=== PATIENT | male | born 1980 | race Caucasian/White ===

== ENCOUNTER 2018-02-11 12:47 | Inpatient (IN) ==
[2018-02-11] MEDS ORDERED: Naloxone 0.4 MG/ML INJ IVP PRN (14:41)
--- NOTE | 2018-02-11 14:44 | Internal Med History&Physical ---
Date of Encounter: 02/11/18 Time of Encounter: 14:44 Internal Medicine - H&P: HPI Chief complaint: My skin turned yellow Admitted From: Home Plans for Post Hospital Care: Home History of present illness: Mr. Cervantes is a 37 year old male with polysubstance abuse: IV drug use of heroine and meth presented to outside facility with complaints of generalized and skin. The patient reports he has been shooting heroin and meth via his upper extremity veins, last use said to be 2 weeks ago. 6 days ago, he noticed increased loose stools described as diarrhea, said to be floating and 2 days ago he noticed yellowness of his eyes associated with darkening of his urine. He denies abdominal pain, he denies fever or chills. Reports abdominal fullness and tightness. He denies any recent sick contacts, he has had no recent travels, he denies chest pain cough or difficulty breathing. He denies nausea or vomiting. He denies an neurologic deficits, he had no trauma preceding his symptoms. he denies LE edema, easy bruising or bleeding from any orifices He reports being to penitentiary recently, but denies been in contact with anyone with similar illness. Work up at [facility] showed mild transaminitis with AST of 836, ALT > 500, ALP 188, total bilirubin 9.7, direct bilirubin 7.2. Lipase and amylase are within normal limit, coagulation panel is 15.5, INR is 1.4, urine analysis shows bilirubinuria abdomen and pelvis CAT scan done showed reactive lymphadenopathy, acute hepatitis and suspected acute cholecystitis Hepatitis viral panel shows reactivity to hepatitis A IgM antibody, hepatitis B surface antigen and hepatitis C antibody. 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 IV drugs: alcohol, marajuana, meth Psychiatric history: anxiety - Social History Smoking Status: Current every day smoker Packs per day: 1/2 Smokeless Tobacco Status: No Alcohol use: occasionally Drug use: methamphetamine - Family History Mother Hx Family Cardiac Disorders: Yes (HTN) Hx Family Respiratory Disorders: No Hx Family Cancer: No Hx Family GI Disorders: Yes (ulcerations NSAIDS) Hx Family Genitourinary Disorders: No Hx Family Endocrine Disorder: No Hx Family Musculoskeletal Disorders: No Hx Family Neuromuscular Disorders: No Hx Family Neurologic Disorders: No Hx Family HEENT Disorders: No Hx Family Autoimmune Disorders: No Hx Family Reproductive Disorders: No Hx Family Psychosocial Disorders: Yes (A/D) Hx Family Medical Disorders: No Father Hx Family Cardiac Disorders: Yes Hx Family Respiratory Disorders: Yes Hx Family Cancer: No Hx Family GI Disorders: No Hx Family Genitourinary Disorders: No Hx Family Endocrine Disorder: Yes (DM) Hx Family Musculoskeletal Disorders: No Hx Family Neuromuscular Disorders: No Hx Family Neurologic Disorders: No Hx Family HEENT Disorders: No Hx Family Autoimmune Disorders: No Hx Family Reproductive Disorders: No Hx Family Psychosocial Disorders: Yes (A/D, Alcoholism) Hx Family Medical Disorders: No Internal Medicine - H&P: Meds No Known Home Drugs 02/11/18 [History] Allergy/AdvReac Type Severity Reaction Status Date / Time Penicillins [PCN] Allergy Rash Verified 02/11/18 10:12 All Systems PM: A 10-system review of systems was performed and is negative for pertinent findings except as documented above in the HPI. - Constitutional Constitutional: as per HPI - EENT Eyes: as per HPI Ears: as per HPI Nose, mouth and throat: as per HPI - Cardiovascular Cardiovascular ROS IM: as per HPI - Respiratory Respiratory: as per HPI - Gastrointestinal Gastrointestinal: as per HPI - Genitourinary Genitourinary ROS male: as per HPI - Musculoskeletal Musculoskeletal ROS IM: as per HPI - Integumentary Integumentary IM: as per HPI - Neurological Neurological ROS: as per HPI - Hematologic/Lymphatic Hematologic/Lymphatic: as per HPI - Constitutional Vitals: Temp Pulse Resp BP Pulse Ox 98.4 F 100 18 132/86 98 02/11/18 14:24 02/11/18 14:24 02/11/18 14:24 02/11/18 14:24 02/11/18 14:24 General appearance: Present: A&O X 3, pleasant, no acute distress Exam: Diffuse skin jaundice - Head Head exam: Present: atraumatic, normocephalic - Eye Eye exam: Present: scleral icterus, conjuntiva pink - ENT ENT exam: Present: mucous membranes moist - Neck Neck exam general surgery: Present: normal inspection - Respiratory Respiratory exam: Present: CTAB - Cardiovascular Cardiovascular exam: Present: RRR, +S1, +S2. Absent: systolic murmur - GI/Abdominal GI/Abdominal exam: Present: soft, tenderness (Mild tenderness in the right upper quadrant, mostly sign negative, no rebound and no guarding. No peritoneal signs) - Extremities Exam Extremities exam: Present: warm, radial pulses palpable and symmetrical. Absent: calf tenderness, cyanotic, pedal edema Additional comments: Tract shin worse on the lower extremity - Neurological Exam Neurological exam: Present: alert, CN II-XII intact, oriented X3, no focal deficits. Absent: pronater drift, facial droop, speech deficit - Skin Additional comments: Jaundice - Assessment and plan (1) Acute hepatitis Current Visit: Yes Status: Acute Assessment and plan: Patient with IV drug abuse reactive hepatitis A IgM, hepatitis B surface antigen, hepatitis C antibody. Hepatitis B core IgM is pending CAT scan noted for likely cholecystitis, however this is unlikely as patient has no abdominal pain, and Vaughn sign is negative. We will obtain gallbladder ultrasound Supportive care with IV fluid hydration and NSAIDs for pain control Monitor LFTs No current indication for gastro-hepatology evaluation. Consider GI evaluation if LFTs continues to worsen. Follow final result of hepatitis panel. (2) Polysubstance abuse Current Visit: Yes Status: Acute Assessment and plan: Encourage cessation Patient last used 2 weeks ago Monitor for withdrawal - Time Spent With Patient Total time spent is greater than 50% in coordination of care (as documented) at patient's floor/unit and/or counseling patient:
[2018-02-11] MEDS: 0.9 % Sodium Chloride 1,000 ML IVC SCH ×2 (15:34→22:37)
[2018-02-11] MEDS ORDERED: Ibuprofen 200 MG TABLET PO PRN (15:40)
[2018-02-11] MEDS: Nicotine 7 MG PATCH.TD24 TD SCH (19:49)
[2018-02-12 06:36] LABS: Basophils % 0.5 %; Eosinophils # 0.1 K/mcL (0.0-0.6); Eosinophils % 2.9 %; Hematocrit 32.9 % (37.5-50.1); Hemoglobin 11.6 g/dL (12.9-16.9); Immature Granulocytes % 0.2 % (0-4); Mean Corpuscular HGB Conc 35.3 g/dL (31.6-35.5); Mean Corpuscular Hemoglobin 33.5 pg (28.0-33.3); Mean Corpuscular Volume 95.1 fL (83.0-100.0); Mean Platelet Volume 9.7 fL (9.4-12.4); Monocytes # 0.7 K/mcL (0.0-1.3); Monocytes % 15.9 %; Neutrophils # 1.3 K/mcL (1.6-8.9); Platelet Count 201 K/mcL (140-400); Red Blood Count 3.46 M/mcL (4.19-5.50); Segmented Neutrophils % 31.5 %
[2018-02-12 06:45] LABS: Alanine Aminotransferase > 500 Units/L (7-52); Albumin 2.6 g/dL (3.5-5.7); Albumin/Globulin Ratio 0.6 (1.1-2.2); Alkaline Phosphatase 171 Units/L (34-104); Aspartate Amino Transferase 710 Units/L (13-39); BUN/Creatinine Ratio 17 (6-26); Bilirubin,Total 8.7 mg/dL (0.3-1.0); Blood Urea Nitrogen 11 mg/dL (6-20); Calcium 8.5 mg/dL (8.6-10.3); Carbon Dioxide 24 mEq/L (23-29); Chloride 108 mEq/L (98-107); Globulin 4.6 g/dL (2.4-3.5); Glucose 73 mg/dL (70-105); Osmolality,Calculated 282 (280-300); Sodium 137 mEq/L (136-145); Total Protein 7.2 g/dL (6.4-8.9); eGFR For Non-African Americans > 60 (> 60)
[2018-02-12] MEDS: Nicotine 7 MG PATCH.TD24 TD SCH (08:30)
--- NOTE | 2018-02-12 14:28 | Internal Med Progress Note ---
Hospitalist Progress Note - Encounter Date of Encounter: 02/12/18 Time of Encounter: 14:25 - Subjective Interval History: Pt resting, he still having mild abdominal pain mainly located at RUQ. still having loose stool. But denies fever, chills, or night sweats. - Exam Vitals: Temp Pulse Resp BP Pulse Ox 97.7 F 97 18 131/77 99 02/12/18 10:54 02/12/18 10:54 02/12/18 10:54 02/12/18 10:54 02/12/18 10:54 Exam: PHYSICAL EXAMINATION: GENERAL APPEARANCE: The patient is alert, oriented and in no acute distress. HEENT: Head is normocephalic. The sinuses are nontender. Pupils are equal and reactive. The nares are patent. Oropharynx clear without lesions. NECK: Supple without lymphadenopathy. HEART: Regular rate and rhythm. LUNGS: No crackles or wheezes are heard. ABDOMEN: Soft, nontender, nondistended with good bowel sounds heard. Inguinal area is normal. EXTREMITIES: Without cyanosis, clubbing or edema. NEUROLOGICAL: Gross nonfocal. SKIN: diffuse jaundice. - Assessment and Plan (1) Acute hepatitis Current Visit: Yes Status: Inactive Assessment and Plan: Patient with IV drug abuse reactive hepatitis A IgM, hepatitis B surface antigen, hepatitis C antibody. Hepatitis B core IgM is pending CAT scan noted for likely cholecystitis, however this is unlikely as patient has no abdominal pain, and Vaughn sign is negative. We will obtain gallbladder ultrasound Supportive care with IV fluid hydration and NSAIDs for pain control Monitor LFTs No current indication for gastro-hepatology evaluation. Consider GI evaluation if LFTs continues to worsen. Follow final result of hepatitis panel. (2) Polysubstance abuse Current Visit: Yes Status: Acute Assessment and Plan: Encourage cessation Patient last used 2 weeks ago Monitor for withdrawal DVT Prophylaxis: SCDs - Time Spent with Patient Total time spent is greater than 50% in coordination of care (as documented) at patient's floor/unit and/or counseling patient: Greater than 35 minutes Plan of Care Discussed with: patient Internal Medicine: Result - Labs CBC & Chem 7: 02/12/18 05:20 02/12/18 05:20 Labs: Short CBC 02/12/18 Range/Units 05:20 WBC 4.1 L (4.3-11.1) K/mcL Hgb 11.6 L (12.9-16.9) g/dL Hct 32.9 L (37.5-50.1) % Plt Count 201 (140-400) K/mcL Neutrophils # 1.3 L (1.6-8.9) K/mcL BMP 02/12/18 05:20 Sodium 137 Potassium 4.0 Chloride 108 H Carbon Dioxide 24 BUN 11 Creatinine 0.64 L Glucose 73 Calcium 8.5 L Liver Function 02/12/18 Range/Units 05:20 Total Bilirubin 8.7 H (0.3-1.0) mg/dL AST 710 H (13-39) Units/L ALT > 500 H (7-52) Units/L Alkaline Phosphatase 171 H (34-104) Units/L Albumin 2.6 L (3.5-5.7) g/dL - Impressions Impressions Gallbladder Ultrasound 02/12/18 00:00 IMPRESSION: Gallbladder wall thickening and pericholecystic fluid, nonspecific in the setting of ascites. The finding can be reactive or due to cholecystitis. If further evaluation is warranted, consider HIDA scan. Hepatic echotexture raises question of underlying hepatocellular disease or hepatitis. Suggest correlation with LFT. Lymphadenopathy near the pancreatic head. Please refer to recent CT. D/ / Micky Farias MD / Micky Farias MD Interpreting Provider: Micky Farias MD Consult Discharge Plan - Plan Referrals: NONE,PCP [Primary Care Provider] -
[2018-02-12] MEDS ORDERED: Ketorolac 15 MG/ML VIAL IVP ONE (20:54)
[2018-02-13 02:55] LABS: Alanine Aminotransferase > 500 Units/L (7-52); Albumin 2.3 g/dL (3.5-5.7); Albumin/Globulin Ratio 0.5 (1.1-2.2); Alkaline Phosphatase 172 Units/L (34-104); Aspartate Amino Transferase 700 Units/L (13-39); BUN/Creatinine Ratio 15 (6-26); Bilirubin,Total 7.6 mg/dL (0.3-1.0); Blood Urea Nitrogen 14 mg/dL (6-20); Calcium 8.4 mg/dL (8.6-10.3); Carbon Dioxide 27 mEq/L (23-29); Chloride 105 mEq/L (98-107); Globulin 4.4 g/dL (2.4-3.5); Glucose 85 mg/dL (70-105); Osmolality,Calculated 282 (280-300); Potassium 4.1 mEq/L (3.5-5.1); Sodium 136 mEq/L (136-145); Total Protein 6.7 g/dL (6.4-8.9); eGFR For Non-African Americans > 60 (> 60)
[2018-02-13] MEDS: Nicotine 7 MG PATCH.TD24 TD SCH (09:00)
[2018-02-13] MEDS: Ketorolac 30 MG/ML VIAL IVP PRN ×2 (09:02→21:30)
--- NOTE | 2018-02-13 13:27 | Internal Med Progress Note ---
Hospitalist Progress Note - Encounter Date of Encounter: 02/13/18 Time of Encounter: 13:23 - Subjective Interval History: Pt resting, he still having mild abdominal pain mainly located at RUQ. still having loose stool. But denies fever, chills, or night sweats. - Exam Vitals: Temp Pulse Resp BP Pulse Ox 98.3 F 80 16 107/67 99 02/13/18 11:04 02/13/18 11:04 02/13/18 11:04 02/13/18 11:04 02/13/18 11:04 Exam: PHYSICAL EXAMINATION: GENERAL APPEARANCE: The patient is alert, oriented and in no acute distress. HEENT: Head is normocephalic. The sinuses are nontender. Pupils are equal and reactive. The nares are patent. Oropharynx clear without lesions. NECK: Supple without lymphadenopathy. HEART: Regular rate and rhythm. LUNGS: No crackles or wheezes are heard. ABDOMEN: Soft, nontender, nondistended with good bowel sounds heard. Inguinal area is normal. EXTREMITIES: Without cyanosis, clubbing or edema. NEUROLOGICAL: Gross nonfocal. SKIN: diffuse jaundice. - Assessment and Plan (1) Acute hepatitis Current Visit: Yes Status: Inactive Assessment and Plan: Patient with IV drug abuse reactive hepatitis A IgM, hepatitis B surface antigen, hepatitis C antibody. Hepatitis B core IgM is pending CAT scan noted for likely cholecystitis, which is also suggested by gallbladder ultrasound. However, this needs to be re-evaluated since acute hepatitis could cause radiological changes mimicking acute cholecystitis. Supportive care with IV fluid hydration and NSAIDs for pain control Monitor LFTs Consider GI evaluation if LFTs continues to worsen. Follow final result of hepatitis panel. (2) Polysubstance abuse Current Visit: Yes Status: Acute Assessment and Plan: Encourage cessation Patient last used 2 weeks ago Monitor for withdrawal DVT Prophylaxis: SCDs - Time Spent with Patient Total time spent is greater than 50% in coordination of care (as documented) at patient's floor/unit and/or counseling patient: Greater than 35 minutes Plan of Care Discussed with: patient Internal Medicine: Result - Labs CBC & Chem 7: 02/12/18 05:20 02/13/18 02:01 Labs: BMP 02/13/18 02:01 Sodium 136 Potassium 4.1 Chloride 105 Carbon Dioxide 27 BUN 14 Creatinine 0.95 Glucose 85 Calcium 8.4 L Liver Function 02/13/18 Range/Units 02:01 Total Bilirubin 7.6 H (0.3-1.0) mg/dL AST 700 H (13-39) Units/L ALT > 500 H (7-52) Units/L Alkaline Phosphatase 172 H (34-104) Units/L Albumin 2.3 L (3.5-5.7) g/dL Consult Discharge Plan - Plan Referrals: NONE,PCP [Primary Care Provider] -
[2018-02-13] MEDS ORDERED: Melatonin 3 MG TABLET PO ONE (20:59)
[2018-02-14 05:55] LABS: Alanine Aminotransferase > 500 Units/L (7-52); Albumin 2.6 g/dL (3.5-5.7); Albumin/Globulin Ratio 0.5 (1.1-2.2); Alkaline Phosphatase 192 Units/L (34-104); Aspartate Amino Transferase 878 Units/L (13-39); BUN/Creatinine Ratio 23 (6-26); Bilirubin,Total 7.9 mg/dL (0.3-1.0); Blood Urea Nitrogen 16 mg/dL (6-20); Calcium 8.4 mg/dL (8.6-10.3); Carbon Dioxide 25 mEq/L (23-29); Chloride 107 mEq/L (98-107); Glucose 89 mg/dL (70-105); Osmolality,Calculated 281 (280-300); Potassium 4.2 mEq/L (3.5-5.1); Sodium 135 mEq/L (136-145); Total Protein 7.6 g/dL (6.4-8.9); eGFR For Non-African Americans > 60 (> 60)
[2018-02-14] MEDS: Ketorolac 30 MG/ML VIAL IVP PRN (08:30)
[2018-02-14] MEDS: Nicotine 7 MG PATCH.TD24 TD SCH (08:31)
[2018-02-14] MEDS: Levofloxacin 750 MG/150 ML 750 MG/150 ML BAG IVPB SCH (14:10)
--- NOTE | 2018-02-14 15:07 | Internal Med Progress Note ---
Hospitalist Progress Note - Encounter Date of Encounter: 02/14/18 Time of Encounter: 12:30 - Subjective Interval History: Mr. Cervantes is a 37 year old male with polysubstance abuse: IV drug use of heroine and meth presented to outside facility with complaints of generalized weakness and yellowish skin discoloration. He also c/o RUQ abd pain. His CT of Abd showed nonspecific periportal edema through out the liver may be reactive related to hepatitis, gallbladder findings suspicious for acute cholecystitis. His ultrasound of right upper quadrant showed gallbladder wall thickening and bryce cholecystic fluid concerning for acute cholecystitis. Patient is tolerating PO intake okay.. He is alert, awake and O x 3.. Still very icteric. He is still c/o mild RUQ abd pain - Exam Vitals: Temp Pulse Resp BP Pulse Ox 98.1 F 90 20 102/62 99 02/14/18 11:13 02/14/18 11:13 02/14/18 11:13 02/14/18 11:13 02/14/18 11:13 Exam: Gen: Alert, awake, Oriented to time,place and person, icteric HEENT: Icteric sclera Chest: Diminished breath sounds B/L, No wheezing, No crackles, No rales Heart: S1S2+ RRR No murmurs Abd: Soft, Mild discomfort in RUQ abd, BS +, No organomegaly Ext: No edema, pulses are palpable, No calf tenderness Neuro : Benign findings Skin: Yellowish discoloration - Assessment and Plan (1) Acute hepatitis Current Visit: Yes Status: Inactive Assessment and Plan: His Hep A IgM positive does have acute Hep A Patient with IV drug abuse hisotry reactive hepatitis B surface antigen, hepatitis C antibody - concenring for chronic Hep B and Hep C Reviewed CT of abd and U/S of RUQ concerning for Cholecystitis Cont Supportive care with IV fluid hydration Oxycodone PRN for pain Monitor LFTs GI consulted for further eval (2) Hepatitis A infection Current Visit: Yes Status: Acute Assessment and Plan: Same as above (3) Acute cholecystitis Current Visit: Yes Status: Acute Assessment and Plan: Reviewed CT of abdomen and ultrasound concerning for acute cholecystitis started him on empirical antibiotic with levofloxacin IV hydration surgery consulted for further evaluation Patient does need to stay in the hospital more than 2 midnights due to his complex medical problems, requiring frequent IV pain medication which needed close monitoring. So we will change him to full admission today. I did review my colleague Dr. Schilling's H & P including HPI, PMH, PSH, FH, SH, and ROS no changes noticed (4) Polysubstance abuse Current Visit: Yes Status: Acute Assessment and Plan: counseled to quit doing drugs SW consulted (5) Chronic hepatitis C Current Visit: Yes Status: Acute - Time Spent with Patient Total time spent is greater than 50% in coordination of care (as documented) at patient's floor/unit and/or counseling patient: Internal Medicine: Result - Labs CBC & Chem 7: 02/12/18 05:20 02/14/18 04:53 Labs: BMP 02/14/18 04:53 Sodium 135 L Potassium 4.2 Chloride 107 Carbon Dioxide 25 BUN 16 Creatinine 0.70 Glucose 89 Calcium 8.4 L Liver Function 02/14/18 Range/Units 04:53 Total Bilirubin 7.9 H (0.3-1.0) mg/dL AST 878 H (13-39) Units/L ALT > 500 H (7-52) Units/L Alkaline Phosphatase 192 H (34-104) Units/L Albumin 2.6 L (3.5-5.7) g/dL Consult Discharge Plan - Plan Referrals: NONE,PCP [Primary Care Provider] -
--- NOTE | 2018-02-14 15:24 | General Surgery Consult Note ---
<Mauricio Harmonsandra Hamlin - Last Filed: 02/15/18 05:28> Date of Encounter: 02/14/18 Assessment and Plan (1) Polysubstance abuse Current Visit: Yes Status: Acute (2) Chronic hepatitis C Current Visit: Yes Status: Acute Qualifiers: Hepatic coma status: without hepatic coma Qualified Code(s): B18.2 - Chronic viral hepatitis C (3) Hepatitis A infection Current Visit: Yes Status: Acute Qualifiers: Hepatic coma status: without hepatic coma Qualified Code(s): B15.9 - Hepatitis A without hepatic coma (4) RUQ pain Current Visit: Yes Status: Acute Medications and Allergies No Known Home Drugs 02/11/18 [History] Allergy/AdvReac Type Severity Reaction Status Date / Time Penicillins [PCN] Allergy Rash Verified 02/11/18 10:12 Review of Systems All systems PM: The remainder of the systems were reviewed and are negative General Surgery Exam Initial Vital Signs Temp Pulse Resp BP Pulse Ox 98.4 F 100 18 132/86 98 02/11/18 14:24 02/11/18 14:24 02/11/18 14:24 02/11/18 14:24 02/11/18 14:24 Exam Initial Vital Signs Temp Pulse Resp BP Pulse Ox 98.4 F 100 18 132/86 98 02/11/18 14:24 02/11/18 14:24 02/11/18 14:24 02/11/18 14:24 02/11/18 14:24 Results - Labs 02/15/18 04:21 02/14/18 04:53 Abnormal lab results RBC 3.41 M/mcL (4.19-5.50) L 02/15/18 04:21 Hgb 11.2 g/dL (12.9-16.9) L 02/15/18 04:21 Hct 32.2 % (37.5-50.1) L 02/15/18 04:21 RDW 17.3 % (11.5-14.5) H 02/15/18 04:21 Sodium 135 mEq/L (136-145) L 02/14/18 04:53 Calcium 8.4 mg/dL (8.6-10.3) L 02/14/18 04:53 Total Bilirubin 7.9 mg/dL (0.3-1.0) H 02/14/18 04:53 AST 878 Units/L (13-39) H 02/14/18 04:53 ALT > 500 Units/L (7-52) H 02/14/18 04:53 Alkaline Phosphatase 192 Units/L (34-104) H 02/14/18 04:53 Albumin 2.6 g/dL (3.5-5.7) L 02/14/18 04:53 Globulin 5.0 g/dL (2.4-3.5) H 02/14/18 04:53 Albumin/Globulin Ratio 0.5 (1.1-2.2) L 02/14/18 04:53 Diabetes panel 02/14/18 Range/Units 04:53 Sodium 135 L (136-145) mEq/L Potassium 4.2 (3.5-5.1) mEq/L Chloride 107 (98-107) mEq/L Carbon Dioxide 25 (23-29) mEq/L BUN 16 (6-20) mg/dL Creatinine 0.70 (0.70-1.30) mg/dL Glucose 89 (70-105) mg/dL Calcium 8.4 L (8.6-10.3) mg/dL AST 878 H (13-39) Units/L ALT > 500 H (7-52) Units/L Alkaline Phosphatase 192 H (34-104) Units/L Albumin 2.6 L (3.5-5.7) g/dL Calcium panel 02/14/18 Range/Units 04:53 Calcium 8.4 L (8.6-10.3) mg/dL Albumin 2.6 L (3.5-5.7) g/dL Pituitary panel 02/14/18 Range/Units 04:53 Sodium 135 L (136-145) mEq/L Potassium 4.2 (3.5-5.1) mEq/L Chloride 107 (98-107) mEq/L Carbon Dioxide 25 (23-29) mEq/L BUN 16 (6-20) mg/dL Creatinine 0.70 (0.70-1.30) mg/dL Glucose 89 (70-105) mg/dL Calcium 8.4 L (8.6-10.3) mg/dL Adrenal panel 02/14/18 Range/Units 04:53 Sodium 135 L (136-145) mEq/L Potassium 4.2 (3.5-5.1) mEq/L Chloride 107 (98-107) mEq/L Carbon Dioxide 25 (23-29) mEq/L BUN 16 (6-20) mg/dL Creatinine 0.70 (0.70-1.30) mg/dL Glucose 89 (70-105) mg/dL Calcium 8.4 L (8.6-10.3) mg/dL Total Bilirubin 7.9 H (0.3-1.0) mg/dL AST 878 H (13-39) Units/L ALT > 500 H (7-52) Units/L Alkaline Phosphatase 192 H (34-104) Units/L Albumin 2.6 L (3.5-5.7) g/dL All other labs normal. Consult Discharge Plan - Plan Instructions: Low Fat Diet (DC) Referrals: NONE,PCP [Primary Care Provider] - Alonzo Harmon MD [Partnered Physician] - 03/23/18 9:00 am - Attending Attestation I have personally performed a face to face evaluation on this patient. I have reviewed and agree with the care plan. History and Exam by me shows: Review the assessment and evaluation with an is practitioner and agree with the above plan. Patient has been having some upper abdominal right upper quadrant abdominal pain for about a week. He admits to polysubstance IV drug use. He is currently homeless. He states that he really has not had much discomfort and presented himself to the emergency room due to discoloration of his eyes and skin. He admits to some and has been there for about 2-3 days. Denies any nausea or vomiting. Positive appetite. On examination he is mildly tender to deep palpation right upper quadrant and left upper quadrant. No masses pal pated. I personally reviewed the ultrasound and CT scan images which was concerning for fluid around the gallbladder which they interpreted as possible cholecystitis however I think that the CT scan and ultrasound findings are related to the viral hepatitis that is present. I do not think he requires any type of surgical intervention and I think that the viral hepatitis is the source of the patient's abdominal pain/discomfort. Will follow from a distance. Thank you. <Yumi Donovan - Last Filed: 02/15/18 07:58> Date of Encounter: 02/15/18 Time of Encounter: 15:24 Assessment and Plan (1) RUQ pain Current Visit: Yes Status: Acute US with GB wall thickening. Most likely reactionary in the setting of Pt noted to be positive for Hep A, B, and C. Would recommend re-evaluatation as outpatient when acute hepatitis is resolved. Follow a low-fat diet at discharge. An appointment has been made and follow-up with Dr. Harmon on March 23 at 9 AM. Surgery will sign off at this time. Please call or we consult it for any further questions or needs arise. (2) Polysubstance abuse Current Visit: Yes Status: Acute (3) Chronic hepatitis C Current Visit: Yes Status: Acute Qualifiers: Hepatic coma status: without hepatic coma Qualified Code(s): B18.2 - Chronic viral hepatitis C (4) Hepatitis A infection Current Visit: Yes Status: Acute Qualifiers: Hepatic coma status: without hepatic coma Qualified Code(s): B15.9 - H epatitis A without hepatic coma (5) Hep B w/o coma Current Visit: Yes Status: Acute History of Present Illness Consult date: 02/14/18 (Dr. Alonzo Harmon) Reason for consult: abdominal pain Requesting physician: Kaylan Haines History of present illness: Past medical, surgical, social histories were reviewed per EMR> Updated where indicated. Surgery has been consulted for recommendations regarding possible cholecystitis. Mr. Cervantes is a 37-year-old male with a past medical history of IV dr ug abuse (heroin and meth) who presented to [facility] on 02/11/2018 with complaints of fever, chills, light white colored stool that floats, right upper quadrant , nausea. He was noted to have acute hepatitis A on chronic hepatitis B and C. A right upper quadrant ultrasound was completed on 02/12/2018 which noted gallbladder wall thickening approximately 6 mm, adjacent pericholcystic fluid, negative sonographic Vaughn's sign. Presently, he reports right upper quadrant and mid aching by improving. He denies nausea or vomiting. He denies association with his meal. He reports an appetite and that he is eating as much food as he can given that he is "homeless and I'm hungry." He reports yellowing of the skin and eyes, continued stool as previously discussed, improving discoloration of his urine, improving feelings of fatigue. He denies feelings of heartburn or reflux. He denies chest pain, shortness of breath black, bloody, or tarry stool, feelings of generalized weakness. 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 IV drugs: alcohol, marajuana, meth Psychiatric history: anxiety - Past Surgical History Surgical History: no surgical history - Social History Smoking Status: Current every day smoker Packs per day: 1/2 Smokeless Tobacco Status: No Alcohol use: occasionally Drug use: methamphetamine, IV Drug Use Occupational status: unemployed Current living situation: Homeless Activity Level: Independent ambulation Recent Out of Country Travel Within the Last 8 Weeks: No Exposure or Possible Exposure to Illness During Travel: No - Family History Mother Hx Family Cardiac Disorders: Yes (HTN) Hx Family Respiratory Disorders: No Hx Family Cancer: No Hx Family GI Disorders: Yes (ulcerations NSAIDS) Hx Family Genitourinary Disorders: No Hx Family Endocrine Disorder: No Hx Family Musculoskeletal Disorders: No Hx Family Neuromuscular Disorders: No Hx Family Neurologic Disorders: No Hx Family HEENT Disorders: No Hx Family Autoimmune Disorders: No Hx Family Reproductive Disorders: No Hx Family Psychosocial Disorders: Yes (A/D) Hx Family Medical Disorders: No Father Hx Family Cardiac Disorders: Yes Hx Family Respiratory Disorders: Yes Hx Family Cancer: No Hx Family GI Disorders: No Hx Family Genitourinary Disorders: No Hx Family Endocrine Disorder: Yes (DM) Hx Family Musculoskeletal Disorders: No Hx Family Neuromuscular Disorders: No Hx Family Neurologic Disorders: No Hx Family HEENT Disorders: No Hx Family Autoimmune Disorders: No Hx Family Reproductive Disorders: No Hx Family Psychosocial Disorders: Yes (A/D, Alcoholism) Hx Family Medical Disorders: No Review of Systems All systems PM: reviewed and no additional remarkable complaints except as stated All systems PM: The remainder of the systems were reviewed and are negative General Surgery Exam Initial Vital Signs Temp Pulse Resp BP Pulse Ox 98.4 F 100 18 132/86 98 02/11/18 14:24 02/11/18 14:24 02/11/18 14:24 02/11/18 14:24 02/11/18 14:24 VITAL SIGNS: Reviewed. See [facility] GENERAL: In no apparent distress. Thin appearing. HEENT: Normocephalic, atraumatic, pupils are equal and reactive, scleral icterus noted, extraocular motions intact, oropharynx is pink and moist, there is no neck adenopathy or JVD noted. CHEST/RESPIRATORY: The thorax is free from signs of trauma. Lung sounds: clear to auscultation, normal respiratory effort CARDIAC: Regular rate and rhythm. Normal S1 and S2, without murmurs, gallops, or rubs. VASCULAR: No Edema. 2+ peripheral pulses. ABDOMEN: soft, right upper and epigastric tenderness. Enlarged liver. Active bowel sounds. Soft. MUSCULOSKELETAL: Good range of motion of all major joints. Extremities without clubbing, cyanosis or edema. NEUROLOGIC EXAM: Alert and oriented x 3. Speech normal. Follows commands. PSYCHIATRIC: Mood normal. SKIN: No rash or lesions. Jaundice noted. Exam Initial Vital Signs Temp Pulse Resp BP Pulse Ox 98.4 F 100 18 132/86 98 02/11/18 14:24 02/11/18 14:24 02/11/18 14:24 02/11/18 14:24 02/11/18 14:24 Results - Labs 02/15/18 04:21 02/15/18 04:21 Abnormal lab results WBC 4.1 K/mcL (4.3-11.1) L 02/12/18 05:20 RBC 3.46 M/mcL (4.19-5.50) L 02/12/18 05:20 Hgb 11.6 g/dL (12.9-16.9) L 02/12/18 05:20 Hct 32.9 % (37.5-50.1) L 02/12/18 05:20 MCH 33.5 pg (28.0-33.3) H 02/12/18 05:20 RDW 16.0 % (11.5-14.5) H 02/12/18 05:20 Neutrophils # 1.3 K/mcL (1.6-8.9) L 02/12/18 05:20 Sodium 135 mEq/L (136-145) L 02/14/18 04:53 Calcium 8.4 mg/dL (8.6-10.3) L 02/14/18 04:53 Total Bilirubin 7.9 mg/dL (0.3-1.0) H 02/14/18 04:53 AST 878 Units/L (13-39) H 02/14/18 04:53 ALT > 500 Units/L (7-52) H 02/14/18 04:53 Alkaline Phosphatase 192 Units/L (34-104) H 02/14/18 04:53 Albumin 2.6 g/dL (3.5-5.7) L 02/14/18 04:53 Globulin 5.0 g/dL (2.4-3.5) H 02/14/18 04:53 Albumin/Globulin Ratio 0.5 (1.1-2.2) L 02/14/18 04:53 Diabetes panel 02/14/18 Range/Units 04:53 Sodium 135 L (136-145) mEq/L Potassium 4.2 (3.5-5.1) mEq/L Chloride 107 (98-107) mEq/L Carbon Dioxide 25 (23-29) mEq/L BUN 16 (6-20) mg/dL Creatinine 0.70 (0.70-1.30) mg/dL Glucose 89 (70-105) mg/dL Calcium 8.4 L (8.6-10.3) mg/dL AST 878 H (13-39) Units/L ALT > 500 H (7-52) Units/L Alkaline Phosphatase 192 H (34-104) Units/L Albumin 2.6 L (3.5-5.7) g/dL Calcium panel 02/14/18 Range/Units 04:53 Calcium 8.4 L (8.6-10.3) mg/dL Albumin 2.6 L (3.5-5.7) g/dL Pituitary panel 02/14/18 Range/Units 04:53 Sodium 135 L (136-145) mEq/L Potassium 4.2 (3.5-5.1) mEq/L Chloride 107 (98-107) mEq/L Carbon Dioxide 25 (23-29) mEq/L BUN 16 (6-20) mg/dL Creatinine 0.70 (0.70-1.30) mg/dL Glucose 89 (70-105) mg/dL Calcium 8.4 L (8.6-10.3) mg/dL Adrenal panel 02/14/18 Range/Units 04:53 Sodium 135 L (136-145) mEq/L Potassium 4.2 (3.5-5.1) mEq/L Chloride 107 (98-107) mEq/L Carbon Dioxide 25 (23-29) mEq/L BUN 16 (6-20) mg/dL Creatinine 0.70 (0.70-1.30) mg/dL Glucose 89 (70-105) mg/dL Calcium 8.4 L (8.6-10.3) mg/dL Total Bilirubin 7.9 H (0.3-1.0) mg/dL AST 878 H (13-39) Units/L ALT > 500 H (7-52) Units/L Alkaline Phosphatase 192 H (34-104) Units/L Albumin 2.6 L (3.5-5.7) g/dL All other labs normal. - Imaging US - abdomen: report reviewed, image reviewed (Per Dr. Harmon)
[2018-02-14] MEDS: *HR* OxyCODONE Immed Rel 5 MG TABLET PO PRN ×2 (17:53→20:03)
[2018-02-15] MEDS: *HR* OxyCODONE Immed Rel 5 MG TABLET PO PRN ×3 (04:24→11:14)
[2018-02-15 05:09] LABS: Basophils % 0.4 %; Eosinophils # 0.1 K/mcL (0.0-0.6); Eosinophils % 2.3 %; Hematocrit 32.2 % (37.5-50.1); Hemoglobin 11.2 g/dL (12.9-16.9); Immature Granulocytes % 0.4 % (0-4); Lymphocytes # 2.7 K/mcL (0.6-4.6); Lymphocytes % 48.1 %; Mean Corpuscular HGB Conc 34.8 g/dL (31.6-35.5); Mean Corpuscular Hemoglobin 32.8 pg (28.0-33.3); Mean Corpuscular Volume 94.4 fL (83.0-100.0); Mean Platelet Volume 9.7 fL (9.4-12.4); Monocytes # 0.8 K/mcL (0.0-1.3); Monocytes % 13.5 %; Platelet Count 194 K/mcL (140-400); Red Blood Count 3.41 M/mcL (4.19-5.50); Red Cell Distribution Width 17.3 % (11.5-14.5); Segmented Neutrophils % 35.3 %
[2018-02-15 05:38] LABS: Alanine Aminotransferase > 500 Units/L (7-52); Albumin 2.5 g/dL (3.5-5.7); Albumin/Globulin Ratio 0.5 (1.1-2.2); Alkaline Phosphatase 171 Units/L (34-104); Aspartate Amino Transferase 752 Units/L (13-39); BUN/Creatinine Ratio 20 (6-26); Blood Urea Nitrogen 13 mg/dL (6-20); Calcium 8.3 mg/dL (8.6-10.3); Carbon Dioxide 26 mEq/L (23-29); Chloride 104 mEq/L (98-107); Globulin 4.8 g/dL (2.4-3.5); Glucose 107 mg/dL (70-105); Magnesium 1.8 mg/dL (1.6-2.6); Osmolality,Calculated 277 (280-300); Potassium 4.1 mEq/L (3.5-5.1); Sodium 133 mEq/L (136-145); Total Protein 7.3 g/dL (6.4-8.9); eGFR For Non-African Americans > 60 (> 60)
[2018-02-15 06:52] VITALS: BP 107/66
[2018-02-15] MEDS: Levofloxacin 750 MG/150 ML 750 MG/150 ML BAG IVPB SCH (07:59)
[2018-02-15] MEDS: Nicotine 7 MG PATCH.TD24 TD SCH (08:00)
--- NOTE | 2018-02-15 09:13 | Gastroenterology Consult Note ---
Date of Encounter: 02/15/18 Time of Encounter: 09:07 - Assessment and plan (1) Chronic hepatitis C Status: Acute Assessment and plan: Pt serology positive for Hep C Antibodies Manage treatment for Hep C in outpatient facility following discharge Qualifiers: Hepatic coma status: without hepatic coma Qualified Code(s): B18.2 - Chronic viral hepatitis C (2) Hepatitis A infection Status: Acute Assessment and plan: Pt serology positive for Hep A IgM Etiology unknown but likely due to IV drug use hx as well as homeless living sit uation Pt receiving IV fluid hydration Pain management with Oxycodone prn Continue to monitor LFTs Allow dz to self resolve Qualifiers: Hepatic coma status: without hepatic coma Qualified Code(s): B15.9 - Hepatitis A without hepatic coma (3) Hep B w/o coma Status: Acute Assessment and plan: Pt serology positive for Hep B Surface Antigen Pt offered follow up, should sx persist, with Dr. Flores after discharge - Time Spent With Patient Total time spent is greater than 50% in coordination of care (as documented) at patient's floor/unit and/or counseling patient: 25 - 35 minutes GI History of Present Illness - Data of Consult Patient: new to practice Consult date: 02/14/18 Requesting Physician: Aman Schilling MD - Consult Narrative Reason for consult: Acute Severe Viral Hepatitis History of present illness: Mr. Cervantes is a 37 year old male presenting with 1 day hx of RLQ sharp abdominal pain exacerbated by sitting up or palpation of the area. Pt does not believe consuming food worsens his pain. Pain was not accompanied by N/V but pt has noticed his BM have been pale and increased in frequency (3-5 a day) within the past week. Pt also states that he has had darkened urine when he first arrived to the hospital but believes this was due to dehydration as he has seen his urine lighten up since he came in. Pt has noticed jaundice of his eyes 7 days ago, but noticed an additional jaundice of his skin 5 days ago. Pt has 3 year hx of needle sharing with methamphetamine use. He also has occasional marijuana use and alcohol use. He was at the point of significant alcohol use from the age of 27 to 35 where he was drinking 4-10 beers a day. Pt is chronic tobacco user, smoking 3/4 ppd for 20 years. Pt does not regularly see any PCP and is currently homeless. He was previously hospitalized at age 20 for hematuria and epistaxis determined to be ITP. He has a sister recently dx with Hep B and C as well. 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 IV drugs: alcohol, marajuana, meth Psychiatric history: anxiety - Past Surgical History Surgical History: no surgical history - Social History Smoking Status: Current every day smoker Packs per day: 1/2 Smokeless Tobacco Status: No Alcohol use: occasionally Drug use: methamphetamine, IV Drug Use - Family History Father Hx Family Cardiac Disorders: Yes Hx Family Respiratory Disorders: Yes Hx Family Cancer: No Hx Family GI Disorders: No Hx Family Genitourinary Disorders: No Hx Family Endocrine Disorder: Yes (DM) Hx Family Musculoskeletal Disorders: No Hx Family Neuromuscular Disorders: No Hx Family Neurologic Disorders: No Hx Family HEENT Disorders: No Hx Family Autoimmune Disorders: No Hx Family Reproductive Disorders: No Hx Family Psychosocial Disorders: Yes (A/D, Alcoholism) Hx Family Medical Disorders: No Mother Hx Family Cardiac Disorders: Yes (HTN, Anemia) Hx Family Respiratory Disorders: No Hx Family Cancer: No Hx Family GI Disorders: Yes (ulcerations NSAIDS) Hx Family Genitourinary Disorders: No Hx Family Endocrine Disorder: No Hx Family Musculoskeletal Disorders: No Hx Family Neuromuscular Disorders: No Hx Family Neurologic Disorders: No Hx Family HEENT Disorders: No Hx Family Autoimmune Disorders: No Hx Family Reproductive Disorders: No Hx Family Psychosocial Disorders: Yes (A/D) Hx Family Medical Disorders: No All systems PM: reviewed and no additional remarkable complaints except as stated - Gastrointestinal Gastrointestinal: Present: abdominal pain, change in bowel habits. Absent: constipation, diarrhea, hematemesis, hematochezia, melena, nausea, vomiting - EENT Eyes: as per HPI - Cardiovascular Cardiovascular ROS: Present: as per HPI - Respiratory Respiratory IM: Present: as per HPI - Genitourinary Genitourinary: Present: change in color - Neurological ROS Neurological GI: Present: as per HPI - Hematologic/Lymphatic Hematologic/Lymphatic pediatric: Present: as per HPI - Integumentary Integumentary GI: Present: jaundice - Psychiatric ROS Psychiatric GI: Present: as per HPI - Endocrine Endocrine IM: Present: as per HPI - Constitutional Vitals: Temp Pulse Resp BP Pulse Ox 98.2 F 83 16 107/66 99 02/15/18 06:49 02/15/18 06:49 02/15/18 06:49 02/15/18 06:49 02/15/18 06:49 General appearance: Present: A&O X 3, no acute distress, answers questions appropriately - Head Head exam: Present: atraumatic, normal inspection - Eye Eye exam: Present: scleral icterus - ENT Additional comments: Pale mucosa in the oropharynx - Respiratory Respiratory exam: Present: CTAB. Absent: rales, rhonchi, wheezes - Cardiovascular Cardiovascular exam: Present: RRR. Absent: gallop, rubs, systolic murmur - GI/Abdominal GI/Abdominal exam: Present: firm, normal bowel sounds, tenderness. Absent: rebound Additional comments: tenderness specific to the RLQ and RUQ - Expanded GI/Abdominal Exam GI/Abdominal exam expanded: Absent: tenderness at McBurney's Point - Extremities Exam Extremities exam: Present: normal inspection - Neurological Exam Neurological exam: Present: alert, oriented X3 - Psychiatric Psychiatric exam: Present: normal affect - Skin Skin exam: Present: dry, warm Results - Labs CBC & Chem 7: 02/15/18 04:21 02/15/18 04:21 Labs: Last Result Calcium 8.3 mg/dL (8.6-10.3) L 02/15/18 04:21 Entire Visit Hgb 11.2 g/dL (12.9-16.9) L 02/15/18 04:21 Hct 32.2 % (37.5-50.1) L 02/15/18 04:21 Total Bilirubin 7.0 mg/dL (0.3-1.0) H 02/15/18 04:21 AST 752 Units/L (13-39) H 02/15/18 04:21 ALT > 500 Units/L (7-52) H 02/15/18 04:21 Consult Discharge Plan - Plan Instructions: Omeprazole (By mouth), Nicotine (Absorbed through the skin), Oxycodone, Rapid Release (By mouth), Levofloxacin (By mouth), Viral Hepatitis A (DC), Low Fat Diet (DC), Viral Hepatitis C (DC), Viral Hepatitis B (DC) Referrals: Alonzo Harmon MD [Partnered Physician] - 03/23/18 9:00 am (please arrive 15 minutes prior to appointment) Stefany Locke CNP [Advanced Practice Nurse] - 02/22/18 10:00 am NONE,PCP [Primary Care Provider] - Destin Capellan MD [Partnered Physician] - (Your appointment has been requested., Our offices will call you with an appointment time and date.) Prescriptions: RX: OxyCODONE Immed Rel [Roxicodone 5 MG] 5 mg PO Q8HR PRN 5 Days #15 tablet PRN Reason: Moderate Pain RX: levoFLOXacin [Levofloxacin] 500 mg PO DAILY #5 tablet RX: Nicotine Patch [Nicoderm] 14 mg TD DAILY #30 patch.[id number] RX: Omeprazole [PriLOSEC] 20 mg PO 0730 #30 capsule.
--- NOTE | 2018-02-15 10:31 | Discharge Summary ---
- NOTES TO OUTPATIENT PROVIDER Notes to Outpatient Provider: Follow up with PCP in 3-5 days. Follow-up with the G.I. Dr. Capellan / Dr. Flores in 1-2 weeks. Follow up with the surgery Dr. Harmon in 2 weeks Date of Encounter: 02/15/18 Time of Encounter: 10:26 - Discharge Diagnosis (1) Acute hepatitis Priority: Primary Status: Inactive (2) Hepatitis A infection Priority: Primary Status: Acute Qualifiers: Hepatic coma status: without hepatic coma Qualified Code(s): B15.9 - Hepa titis A without hepatic coma (3) Acute cholecystitis Priority: Secondary Status: Acute (4) Polysubstance abuse Priority: Secondary Status: Acute (5) Chronic hepatitis C Priority: Secondary Status: Acute Qualifiers: Hepatic coma status: without hepatic coma Qualified Code(s): B18.2 - Chronic viral hepatitis C Hospital course: Mr. Cervantes is a 37 year old male with polysubstance abuse: IV drug use of heroine and meth presented to outside facility with complaints of generalized weakness and yellowish skin discoloration. He also c/o RUQ abd pain. His CT of Abd showed nonspecific periportal edema through out the liver may be reactive related to hepatitis, gallbladder findings suspicious for acute cholecystitis. His ultrasound of right upper quadrant showed gallbladder wall thickening and bryce cholecystic fluid concerning for acute cholecystitis. He was admitted in the hospital and started him on symptomatic and supportive care with IV hydration. Also placed him on empirical antibiotic levofloxacin. His symptoms started improving. He is tolerating oral intake well now. His viral hepatitis serology came back as positive for acute Hep A and chronic Hep B, C. Pt was evaluated by GI recommend to monitor LFT's closely and f/u with them as an out pt for Chronic Hep C care. Regarding his cholecystitis pt was evaluated by surgery who thinks his gallbladder findings on ultrasound and CT are consistent with the viral hepatitis. Did not recommend any surgical intervention at this point. His LFTs started trending down and he is tolerating PO intake well so will discharge him home in a stable condition today, with the recommendations of follow-up lab work in 3 days as well as follow up with PCP, G.I. and surgery as an outpatient. Counseled the patient to quit IV drugs - Time Spent with Patient Total time spent providing and/or coordinating discharge services: - Discharge Medications Prescriptions: OxyCODONE Immed Rel [Roxicodone 5 MG] 5 mg PO Q8HR PRN 5 Days #15 tablet PRN Reason: Moderate Pain levoFLOXacin [Levofloxacin] 500 mg PO DAILY #5 tablet Nicotine Patch [Nicoderm] 14 mg TD DAILY #30 patch.td24 Omeprazole [PriLOSEC] 20 mg PO 0730 #30 capsule. Home Medications: Nicotine Patch [Nicoderm] 14 mg TD DAILY #30 patch.td24 02/15/18 [Rx] Omeprazole [PriLOSEC] 20 mg PO 0730 #30 capsule. 02/15/18 [Rx] OxyCODONE Immed Rel [Roxicodone 5 MG] 5 mg PO Q8HR PRN 5 Days #15 tablet 02/15/18 [Rx] levoFLOXacin [Levofloxacin] 500 mg PO DAILY #5 tablet 02/15/18 [Rx] Allergies/Adverse Reactions: Allergy/AdvReac Type Severity Reaction Status Date / Time Penicillins [PCN] Allergy Rash Verified 02/11/18 10:12 Date of admission: 02/14/18 12:31 Primary care physician: PCP NONE Consults: 02/14/18 12:56 Consult to Gastroenterology [CONS] Routine Consulting Provider: Gastroenterology Jocelynn Reason for Consult: Acute severe viral hepatitis Time Notified: 12:56 Call Completed: Yes 02/14/18 12:57 Consult to Surgery [CONS] Routine Consulting Provider: [facility] Reason for Consult: Acute cholecystitis Time Notified: 12:58 Call Completed: Yes - Constitutional Vitals: Temp Pulse Resp BP Pulse Ox 98.2 F 83 16 107/66 99 02/15/18 06:49 02/15/18 06:49 02/15/18 06:49 02/15/18 06:49 02/15/18 06:49 General appearance: Present: A&O X 3, pleasant, no acute distress Exam: Gen: Alert, awake, Oriented to time,place and person, icteric HEENT: Icteric sclera Chest: Diminished breath sounds B/L, No wheezing, No crackles, No rales Heart: S1S2+ RRR No murmurs Abd: Soft, Mild discomfort in RUQ abd, BS +, No organomegaly Ext: No edema, pulses are palpable, No calf tenderness Neuro : Benign findings Skin: Yellowish discoloration - Patient Status Disposition: Home, Self-Care Condition: Fair Overall status at discharge: patient is progressing back to baseline - Ambulatory Orders Ambulatory Orders: Complete Blood Count [HEME] Time Frame: 3 Days, Facility: [facility], Location: [facility] Comprehensive Metabolic Panel [CHEM] Time Frame: 3 Days, Facility: [facility], Location: [facility] [place] - Discharge Instructions Instructions: Low Fat Diet (DC) Follow Up With: Alonzo Harmon MD [Partnered Physician] - 03/23/18 9:00 am NONE,PCP [Primary Care Provider] - Destin Capellan MD [Partnered Physician] - - Diet and Activity Activity: increase activity as tolerated Diet: low salt diet
== END 2018-02-15 12:03 | disposition home or self-care (01) ==
LOC: 3BNU
PROVIDERS: ADMIT Internal Medicine; ATTEND Internal Medicine